=== PATIENT | female | born 2000 | race Caucasian/White ===

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

== ENCOUNTER 2025-02-23 20:08 | Emergency (ER) | payer BC, OTHER ==
[2025-02-23 20:40] VITALS: BP 110/75; PULSE 77
== END 2025-02-23 21:10 | disposition home or self-care (01) ==
LOC: LL.ED 20:08
DX: S20.221A Contusion of right back wall of thorax, initial encounter (principal); Z88.0 Allergy status to penicillin; W01.0XXA Fall on same level from slipping, tripping and stumbling without subsequent striking against object, initial encounter
CPT/HCPCS: 73010-RT; 99283

== ENCOUNTER 2025-07-09 18:39 | Emergency (ER) | payer SELFPAY ==
[2025-07-09 18:44] VITALS: BP 115/72; PULSE 122
== END 2025-07-09 20:15 | disposition home or self-care (01) ==
LOC: LL.ED 18:39
DX: J06.9 Acute upper respiratory infection, unspecified (principal); Z88.0 Allergy status to penicillin
CPT/HCPCS: 87428-QW; 99283; A9270-GY